=== PATIENT | female | born 1945 | race Caucasian/White ===

== ENCOUNTER → 2017-05-14 | Outpatient (CLI) | payer BC ==
[~2017-05-14] MED LIST: ALPR-411 PO; ATEN50TA8 PO; OMEG10007 PO
[2017-05-14 12:55] LABS: BASO % 0.4 %; BASO ABS # 0.03 K/uL (0-0.2); COMPLETE YES; EOS % 2.1 %; HEMATOCRIT 47.3 % (37-47); IG% 0.3 %; LYMPH % 21.7 %; LYMPH ABS # 1.52 K/uL (1.2-3.4); MEAN CELL VOLUME 88.1 fL (80-100); MEAN PLATELET VOLUME 11.9 fL (7.4-10.4); NEUT % 66.5 %; PLATELET COUNT 166 K/uL (130-400); RED BLOOD COUNT 5.37 M/uL (4.2-5.4)
[2017-05-14 13:12] LABS: ESTIMATED AVERAGE GLUCOSE 154 mg/dl; HA1C FLAG Normal (Normal)
[2017-05-14 13:19] LABS: ALT/SGPT 36 U/L (12-78); BLOOD UREA NITROGEN 17 mg/dl (7-18); BUN/CREATININE RATIO 23.1 (10-20); CALCIUM 9.5 mg/dl (8.5-10.1); CARBON DIOXIDE 32 mmol/L (21-32); CHLORIDE 100 mmol/L (98-107); CREATININE 0.75 mg/dl (0.60-1.20); GLUCOSE 158 mg/dl (70-99); POTASSIUM 3.8 mmol/L (3.5-5.1); SODIUM 137 mmol/L (136-145)
[2017-05-14 13:21] LABS: ALKALINE PHOSPHATASE 68 U/L (45-117); AST/SGOT 30 U/L (15-37); CHOLESTEROL 217 mg/dl (0-200); CHOLESTEROL/HDL RATIO 4.4; HDL CHOLESTEROL 49 mg/dl; LDL CHOLESTEROL CALCULATED 124 mg/dl; TRIGLYCERIDES 221 mg/dl (0-150); VERY LOW DENSITY LIPOPROT CALC 44 mg/dl
== END | disposition home or self-care (01) ==
LOC: C.LABBFT 08:23
PROVIDERS: ATTEND Internal Medicine
DX: E55.9 Vitamin D deficiency, unspecified (principal)

== ENCOUNTER → 2017-05-29 | Outpatient (CLI) | payer BC | END | disposition home or self-care (01) | LOC: C.PAPS 13:59 | PROVIDERS: ATTEND Obstetrics & Gynecology | DX: Z12.4 Encounter for screening for malignant neoplasm of cervix (principal) ==

== ENCOUNTER → 2017-08-15 | Outpatient (CLI) | payer BC ==
[2017-08-15 13:25] LABS: HEMOGLOBIN A1C 6.9 % (4.5-5.6)
== END | disposition home or self-care (01) ==
LOC: C.LABBFT 08:21
PROVIDERS: ATTEND Internal Medicine
DX: E11.9 Type 2 diabetes mellitus without complications (principal)

== ENCOUNTER → 2017-11-13 | Outpatient (CLI) | payer BC ==
[2017-11-13 12:48] LABS: HEMOGLOBIN A1C 6.5 % (4.5-5.6)
== END | disposition home or self-care (01) ==
LOC: C.LABBFT 08:14
PROVIDERS: ATTEND Internal Medicine
DX: R73.09 Other abnormal glucose (principal)

== ENCOUNTER 2023-02-11 06:23 | Observation (INO) ==
--- NOTE | 2023-02-07 13:44 | Anesthesiology Consultation ---
Date of Service February 07, 2023 Assessment & Plan (1) Encounter for pre-operative examination: Chart Review Chart Review: Acceptable Risk for Surgery and Patient NOT seen in Pre Admission Testing - Check BSG AM DOS -COVID screening: Per PAT nursing assessment on 02/04/23. No known COVID-19 positive contacts or current COVID-19 related symptoms. Travel screen negative. At surgeon discretion if preop Covid testing being done. History Surgery Operation Date: 02/11/23 09:10 Proposed Procedures p Left Breast Mastectomy with Left [place] Lymph Node Biopsy - Juanjose Negron MD, FACS Height/Weight Height: 5 ft 7 in Weight: 77.111 kg Allergies Allergy/AdvReac Type Severity Reaction Status Date / Time No Known Drug Allergies Allergy Verified 02/11/23 06:42 Medications Home Medications Medication Instructions Recorded Confirmed Last Taken cholecalciferol (vitamin D3) 50 2,000 units PO DAILY 06/30/19 02/11/23 02/09/23 mcg (2,000 unit) tablet triamcinolone acetonide 0.1 % 1 applic topical TID PRN vulvar 08/03/21 02/11/23 Unknown topical ointment itching #30 grams carvedilol 25 mg tablet 25 mg PO BID #180 tabs 08/28/22 02/11/23 02/11/23 05:30 indapamide 2.5 mg tablet 2.5 mg PO QAM 02/04/23 02/11/23 02/11/23 05:30 metformin 500 mg tablet 500 mg PO QAM 02/04/23 02/11/23 02/09/23 omeprazole 20 mg capsule,delayed 20 mg PO QAM 02/04/23 02/11/23 02/10/23 08:00 release alprazolam 0.5 mg tablet 0.25 - 0.5 mg PO HS PRN Anxiety 02/11/23 02/11/23 02/10/23 17:00 Active Medications Generic Name Dose Route Start Last Admin Trade Name Freq PRN Reason Stop Dose Admin Lactated Ringer's 1,000 mls @ 15 mls/hr 02/11/23 06:00 02/11/23 07:00 Lr IV 02/12/23 05:59 15 mls/hr .Q24H MIYA Administration Past Medical History Medical History Anxiety Breast cancer Recurrent breast cancer 01/01/23- left breast -reason for upcoming left mastectomy Jun 2021- left breast biopsy x 2- ADH and papilloma 1996 breast cancer Diabetes mellitus Erythrocytosis RBC only mildly elevated on 02/07/23 preop labs (5.56) GERD without esophagitis Hyperlipidemia Hypertension Otitis media, chronic, left Past Family History Family History Father , age 75 Renal failure Mother , age 85 Cryptogenic cirrhosis Brother , age 81 Heart disease Esophageal cancer Unknown Diverticulitis Sister Breast cancer Denies family history of Ovarian cancer Prostate cancer Diabetes Myocardial infarction Lung cancer Colorectal cancer Stroke Past Surgical History Surgical History H/O colonoscopy (08/11/12) History of ear surgery right tympanic membrane History of partial mastectomy of left breast with axillary sampling S/P tonsillectomy Social History Smoking Status: Never smoker Do You Dip or Chew Tobacco: No Hx Alcohol Use: No Hx Substance Use: No Physical Exam Vital Signs Last Vital Signs Temp 98.2 F 02/11/23 06:45 Pulse 82 02/11/23 06:45 Resp 18 02/11/23 06:45 BP 174/96 H 02/11/23 06:45 Pulse Ox 95 02/11/23 06:45 O2 Del Method Room Air 02/11/23 06:45 Lab Results Anesthesia Preop Results Results Anesthesia Widget: WBC 7.30 K/ul (4.8-10.8) 02/07/23 Hgb 16.0 g/dl (12.0-16.0) 02/07/23 Hct 46.6 % (37.0-47.0) 02/07/23 Plt 194 K/uL (130-400) 02/07/23 Na 137 mmol/L (136-145) 02/07/23 K 3.5 mmol/L (3.5-5.1) 02/07/23 Cl 99 mmol/L (98-107) 02/07/23 CO2 28 mmol/L (21-32) 02/07/23 BUN 17 mg/dl (6-23) 02/07/23 Creat 0.60 mg/dl (0.6-1.2) 02/07/23 Glucose Level 229 mg/dl (70-99(Fasting)) H 02/07/23 POC Glucose 270 mg/dl (70-99) H 02/11/23 Testing Laboratory Results 02/11/23 06:56 POC Glucose 270 H 08/23/22= HGB A1C: 7.4 Electrocardiogram Date: 02/07/23 Findings: + NSR @ (80bpm ) Nonspecific ST abnormality When compared to EKG from August 11, 2012no significant change was found per cardio
[~2023-02-11 06:23] MED LIST changes: -ALPR-411 PO; -ATEN50TA8 PO; +LR 15ML/HR IV SCH; -OMEG10007 PO; +ceFAZolin 2000MG 2,000 MG/15 ML SYR IV SCH
--- NOTE | 2023-02-11 07:02 | History & Physical Report ---
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 She also had prior biopsies in 2 places of the left breast medial and lateral showing ADH I believe this is a recurrent breast cancer with a history in 1996 Allergies Allergy/AdvReac Type Severity Reaction Status Date / Time No Known Drug Allergies Allergy Verified 02/11/23 06:42 Home Medications Medication Instructions Recorded Confirmed Type cholecalciferol (vitamin D3) 50 2,000 units PO DAILY 06/30/19 02/11/23 History mcg (2,000 unit) tablet triamcinolone acetonide 0.1 % 1 applic topical TID PRN vulvar 08/03/21 02/11/23 Rx topical ointment itching #30 grams carvedilol 25 mg tablet 25 mg PO BID #180 tabs 08/28/22 02/11/23 Rx indapamide 2.5 mg tablet 2.5 mg PO QAM 02/04/23 02/11/23 History metformin 500 mg tablet 500 mg PO QAM 02/04/23 02/11/23 History omeprazole 20 mg capsule,delayed 20 mg PO QAM 02/04/23 02/11/23 History release alprazolam 0.5 mg tablet 0.25 - 0.5 mg PO HS PRN Anxiety 02/11/23 02/11/23 History Past Med/Surg History Medical History Anxiety Breast cancer Recurrent breast cancer 01/01/23- left breast -reason for upcoming left mastectomy Jun 2021- left breast biopsy x 2- ADH and papilloma 1996 breast cancer Diabetes mellitus Erythrocytosis RBC only mildly elevated on 02/07/23 preop labs (5.56) GERD without esophagitis Hyperlipidemia Hypertension Otitis media, chronic, left Surgical History H/O colonoscopy (08/11/12) History of ear surgery right tympanic membrane History of partial mastectomy of left breast with axillary sampling S/P tonsillectomy Family History Father , age 75 Renal failure Mother , age 85 Cryptogenic cirrhosis Brother , age 81 Heart disease Esophageal cancer Unknown Diverticulitis Sister Breast cancer Denies family history of Ovarian cancer Prostate cancer Diabetes Myocardial infarction Lung cancer Colorectal cancer Stroke Social History Smoking Status: Never smoker Second Hand Exposure: No; Do You Dip or Chew Tobacco: No; Tobacco Cessation Education Requested by Patient: No Hx Alcohol Use: No Hx Substance Use: No Preferred Language: Lao Communication Ability: Effective Visual Impairment: Limited Hearing Ability: Hard of Hearing 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 [employer]ation Required: No Beliefs That Will Affect Care: None marital status: Current Living Situation: Spouse current occupational status: retired How many Children do You have: 1 Other Information That Helps Us Care for You: No Feels Safe at Home: Yes Safety Concerns: Feels Safe At This Time Childhood Exposure to Second-Hand Smoke: No Diet: diabetic and regular Diet Comment: Mediterranean diet reviewed caffeine: Yes (very rare if she does ) during the past year weight has: remained stable Dental Care, Regularly: Yes Physical Activity Frequency: 3-4 Times per Week Physical Activity Frequency Comment: Importance of routine aerobic exercise stressed. At minimum 150-200 minute Seatbelt Use: always Sunscreen Use: Yes Assistive Devices: Denture - Lower Review of Systems All systems reviewed & are unremarkable except as noted in HPI & below Physical Exam Constitutional: well developed and well nourished; no acute distress Eyes: + anicteric sclerae Respiratory: normal respiratory effort; no respiratory distress Cardiovascular: Rate/Rhythm: regular rate Gastrointestinal (Abdomen): Percussion/Palpation: abdomen soft Musculoskeletal: Gait: normal gait Skin: no rashes, warm and dry Neurologic: awake Psychiatric: Orientation: alert Results & Data Vital Signs (Past 12 Hours) Vital Signs Temp Pulse Resp BP Pulse Ox O2 Del Method 02/11/23 06:45 36.8 C 82 18 174/96 H 95 Room Air
[2023-02-11] MEDS ORDERED: BUPIVACAINE 0.5 % 5 MG/1 ML MPF 30ML VIAL ONE (07:58)
[2023-02-11] MEDS ORDERED: ISOSULFAN BLUE 10 MG/ML VIAL 5 ML ONE (07:58)
[2023-02-11] MEDS ORDERED: fentaNYL citrate PF 100 MCG/2 ML VIAL ONE ×2 (08:32→09:39)
[2023-02-11] MEDS ORDERED: ONDANSETRON INJ 2 MG/ML 2 ML VIAL ONE (08:32)
[2023-02-11] MEDS ORDERED: ROCURONIUM BROMIDE 10 MG/ML 5 ML VIAL IV ONE (08:32)
[2023-02-11] MEDS ORDERED: PROPOFOL IV EMULSION 10 MG/ML 20 ML VIAL IV ONE (08:32)
[2023-02-11] MEDS ORDERED: MIDAZOLAM HCL 1 MG/ML 2ML VIAL ONE (08:33)
[2023-02-11] MEDS ORDERED: NovoLIN-R INSULIN PER UNIT CHARGE SC STA (08:40)
[2023-02-11] MEDS ORDERED: NovoLIN-R INSULIN PER UNIT CHARGE ONE (08:41)
[2023-02-11] MEDS ORDERED: fentaNYL citrate PF 100 MCG/2 ML VIAL IV PRN (08:41)
[2023-02-11] MEDS ORDERED: ONDANSETRON INJ 2 MG/ML 2 ML VIAL IV PRN ×2 (08:41→11:47)
[2023-02-11] MEDS ORDERED: ePHEDrine sulfate 50 MG/ML AMP IV PRN (08:41)
[2023-02-11] MEDS ORDERED: ATROPINE SULFATE 0.1 MG/ML 10ML SYR IV PRN (08:41)
[2023-02-11] MEDS ORDERED: ePHEDrine sulfate 50 MG/ML SYR ONE (09:06)
[2023-02-11] MEDS ORDERED: ACETAMINOPHEN 1,000 MG/100 ML VIAL IV ONE (10:26)
--- NOTE | 2023-02-11 10:26 | Post Operative Brief Note ---
PG Immediate Post Op with CF Date of Surgery February 11, 2023 Pre & Post Diagnosis Operation Date: 02/11/23 09:10 Pre-Op Diagnosis: Left Breast Invasive Cancer Post-Op Diagnosis: Left Breast Invasive Cancer I identified the patient and participated in the time-out.: Yes Procedure Operation Date: 02/11/23 09:10 Actual Procedures p Left Breast Mastectomy with Left [place] Lymph Node Biopsy(Left) - Juanjose Negron MD, FACS Surgeon Juanjose Negron MD, FACS Experimental Box Tester chad red Estimated Blood Loss 10 Findings Consistent with Post-Op Diagnosis Left sentinel lymph nodes and left breast tissue Specimens Specimen Description: A. Left [place] Lymph Node B. Left Breast; Long Silk Lateral Drains Mendoza-Osuna Drain
--- NOTE | 2023-02-11 10:47 | Operative Report ---
PG Post Operative Report Pre & Post Diagnosis Operation Date: 02/11/23 09:10 Pre-Op Diagnosis: Left Breast Invasive Cancer Post-Op Diagnosis: Left Breast Invasive Cancer I identified the patient and participated in the time-out.: Yes Procedure Operation Date: 02/11/23 09:10 Actual Procedures p Left Breast Mastectomy with Left [place] Lymph Node Biopsy(Left) - Juanjose Negron MD, FACS Surgeon Juanjose Negron MD, FACS Assistant Property Manager chad red Estimated Blood Loss 10 Findings Consistent with Post-Op Diagnosis Specimens Left axillary lymph nodes and left breast tissue Description of Procedure Patient brought in the operating room placed the operating room table in supine position, her left arm was extended on an armboard Her left chest and axilla were prepped and draped in usual fashion Half percent plain Marcaine was used to anesthetize all incisions-incision was made in the left axilla Using the neoprobe and blue dye which had been injected several sentinel lymph nodes were identified and sent for routine pathology Elliptical incision was made around the nipple areolar complex from medial to lateral over the left breast Dissection was carried out in the subcutaneous tissue dissecting the breast tissue away from the subcutaneous tissue creating superior and inferior skin flaps Breast tissue was dissected away from the pectoralis major muscle Vessels were ligated using 2-0 chromic and plain suture Breast tissue was marked with long silk lateral and then placed into the Faxitron to identify the markers-they were all in place within the specimen Site was irrigated 15 round Mendoza-Osuna drain placed into the chest wound secured using 3-0 nylon suture Axillary tissue reapproximated deep using 2-0 plain suture then the skin using 4-0 nylon suture Chest wall skin reapproximated using subcutaneous 3-0 Vicryl and then subcuticular 4-0 Monocryl with half-inch Steri-Strips Dressing applied patient transferred recovery room in stable condition My miller head assistant wet process help with prepping draping removal of breast tissue and lymph nodes and closure of the wounds I attest to the content of the Intraoperative Record and any orders documented therein. Any exceptions are noted below.
--- NOTE | 2023-02-11 10:54 | Hospitalist Consultation ---
Date of Consultation February 11, 2023 Assessment & Plan (1) Status post left mastectomy: -Pain control, perioperative abx, DVT PPX, and IV fluids per the primary team -Patient tolerated her procedure well and is without acute complications -Ordered am CBC, BMP, and mag for 02/12, we will follow -Thank you for allowing us to participate in the care of this patient, please reach out with any questions or concerns -Medicine will continue to follow (2) Diabetes mellitus: -Hold metformin -Received 2 units of SC Regular Human insulin for hyperglycemia at 0840 -Will place pharmacy glycemic management consult for assistance for glucose management -Would start a DMII diet once she can tolerate solids (3) Erythrocytosis: -Is monitored by her PCP, has declined hematology consult in the past -Monitor CBC tomorrow morning (4) GERD without esophagitis: -Continue daily PPI (5) Hypertension: -Stable -Continue BID Carvedilol -Hold Indapamide for now to prevent hypotension/DAVID Plan The patient was discussed with Dr. Raines at the time of the consult Supervising Physician Co-Signing Physician Notes I personally saw and examined the patient. I verified all jones points and agree with Guevara Sweet PA-C with the following exceptions and/or additions: 77 year old female POD#0 left breast mastectomy. No concerns or questions from the patient. O/E Alert & orientatedx3, No respiratory distress A/P No change to plan as above. History of Present Illness Reason for Consultation: Post-op medical management Requesting Physician: Juanjose Negron MD, FACS Attending Physician: Dr. 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 Negron. Per review of the patient's vitals, the patient has remained stable since arrival. Per the operative report, the EBL was listed as 10 cc; anesthesia type and post-operative complications were not listed. At the time of the exam the patient was lying in bed in no acute distress. She states that she feels tired after her procedure but is otherwise without c omplaints. She has some mild tenderness at the surgical site but her pain is currently well-controlled. She states she took some of her am medications this morning but is not sure which ones she took. The patient is hesitant to open her mouth wide at the time of the exam due to being self conscious regarding not having her dentures in at this time. Please refer to Dr. Raines's attestation for any changes to the treatment plan Allergies Allergy/AdvReac Type Severity Reaction Status Date / Time No Known Drug Allergies Allergy Verified 02/11/23 06:42 Home Medications Medication Instructions Recorded Confirmed Type cholecalciferol (vitamin D3) 50 2,000 units PO DAILY 06/30/19 02/11/23 History mcg (2,000 unit) tablet triamcinolone acetonide 0.1 % 1 applic topical TID PRN vulvar 08/03/21 02/11/23 Rx topical ointment itching #30 grams carvedilol 25 mg tablet 25 mg PO BID #180 tabs 08/28/22 02/11/23 Rx indapamide 2.5 mg tablet 2.5 mg PO QAM 02/04/23 02/11/23 History metformin 500 mg tablet 500 mg PO QAM 02/04/23 02/11/23 History omeprazole 20 mg capsule,delayed 20 mg PO QAM 02/04/23 02/11/23 History release alprazolam 0.5 mg tablet 0.25 - 0.5 mg PO HS PRN Anxiety 02/11/23 02/11/23 History cephalexin 500 mg capsule 500 mg PO TID #15 caps 02/12/23 Rx hydrocodone 5 mg-acetaminophen 325 1 tab PO Q4H PRN pain #10 tabs 02/12/23 Rx mg tablet Patient History Medical History Anxiety Breast cancer Recurrent breast cancer 01/01/23- left breast -reason for upcoming left mastectomy Jun 2021- left breast biopsy x 2- ADH and papilloma 1996 breast cancer Diabetes mellitus Erythrocytosis RBC only mildly elevated on 02/07/23 preop labs (5.56) GERD without esophagitis Hyperlipidemia Hypertension Otitis media, chronic, left Surgical History (Updated 02/11/23 @ 11:20 by Guevara Sweet PA-C) H/O colonoscopy (08/11/12) History of ear surgery right tympanic membrane History of partial mastectomy of left breast with axillary sampling S/P tonsillectomy Family History Father , age 75 Renal failure Mother , age 85 Cryptogenic cirrhosis Brother , age 81 Heart disease Esophageal cancer Unknown Diverticulitis Sister Breast cancer Denies family history of Ovarian cancer Prostate cancer Diabetes Myocardial infarction Lung cancer Colorectal cancer Stroke Social History Smoking Status: Never smoker Second Hand Exposure: No; Do You Dip or Chew Tobacco: No; Tobacco Cessation Education Requested by Patient: No Hx Alcohol Use: No Hx Substance Use: No Preferred Language: Urdu Communication Ability: Effective Visual Impairment: Limited Hearing Ability: Hard of Hearing Packaging Clerk Required: No Beliefs That Will Affect Care: None marital status: Current Living Situation: Spouse current occupational status: retired How many Children do You have: 1 Other Information That Helps Us Care for You: No Feels Safe at Home: Yes Safety Concerns: Feels Safe At This Time Childhood Exposure to Second-Hand Smoke: No Diet: diabetic and regular Diet Comment: Mediterranean diet reviewed caffeine: Yes (very rare if she does ) during the past year weight has: remained stable Dental Care, Regularly: Yes Physical Activity Frequency: 3-4 Times per Week Physical Activity Frequency Comment: Importance of routine aerobic exercise stressed. At minimum 150-200 minute Seatbelt Use: always Sunscreen Use: Yes Assistive Devices: Denture - Lower Physical Exam Physical Exam: Physical Exam: General: In no acute distress, stated age, well-nourished, good hygiene HEENT: Normocephalic, atraumatic, no scleral icterus, pupils around round, symmetrical, and reactive to light, moist mucus membranes, trachea midline, no thyromegaly Chest/Pulm: No respiratory distress, symmetrical chest expansion, clear breath sounds throughout Cardiac: RRR, no murmurs noted Abdomen: Negative for ascites and bruising, normoactive bowel sounds, soft, non-tender to palpation throughout Musculoskeletal: Chest is currently wrapped and without signs of drainage/bleeding, otherwise symmetrical and without signs of acute trauma Extremities: Radial, dorsalis pedis, and posterior tibial pulses are intact and symmetrical, no edema noted in the BL LE's Skin: Warm, dry, no rashes , lesions, or scars noted Neuro: Alert and oriented to person, place, month, year, and president, no focal defects, no tremors noted Psych: No acute distress, calm and cooperative during the exam Results & Data Results & Data Vital Signs (Past 12 Hours) Vital Signs Temp Pulse Resp BP Pulse Ox O2 Del Method 02/11/23 06:45 36.8 C 82 18 174/96 H 95 Room Air Laboratory Results Abnormal lab results 02/11/23 02/11/23 Range/Units 06:56 10:46 POC Glucose 270 H 204 H (70-99) mg/dl ECG Additional Comments: Will obtain at the time of the consult PG Care Time/CCT Total # of Minutes Spent Total Time Spent with Patient: Total time spent is greater than 50% in coordination of care (as documented) at patient's floor/unit and/or counseling patient: Coding [place] [address] IN/OBS CONSULT LVL 3,45M Patient Type Established Medical Decision Making Moderate Complexity Diagnoses Status post left mastectomy Z90.12 Diabetes mellitus E11.9 Erythrocytosis D75.1 GERD without esophagitis K21.9 Hypertension I10
[2023-02-11] MEDS ORDERED: PHARMACY GLYCEMIC MGMT CONSULT PRN (11:11)
[2023-02-11] MEDS ORDERED: ALPRAZolam 0.25 MG TABLET PO PRN (11:12)
--- NOTE | 2023-02-11 11:17 | Anesthesiology Progress Note ---
Date of Service February 11, 2023 Anesthesia Post Procedure Vital Signs Vital Signs: Temp Pulse Pulse Resp BP Pulse Ox O2 Del Method 02/11/23 11:15 97.9 F 70 20 157/91 H 95 Room Air 02/11/23 10:55 81 20 145/85 H 94 Room Air 02/11/23 11:05 75 20 154/90 H 95 Room Air 02/11/23 10:45 85 13 122/83 97 Oxymask 02/11/23 10:37 98.1 F 75 20 123/66 97 Oxymask 02/11/23 06:45 98.2 F 82 18 174/96 H 95 Room Air O2 Flow Rate 02/11/23 11:15 02/11/23 10:55 02/11/23 11:05 02/11/23 10:45 2 02/11/23 10:37 6 02/11/23 06:45 Transfer of Care Handoff Completed per policy Notes Mental Status: alert / awake / arousable and participated in evaluation Patient Amnestic to Procedure: Yes Nausea / Vomiting: adequately controlled Pain: adequately controlled Airway Patency, RR, SpO2: stable & adequate BP & HR: stable & adequate Hydration State: stable & adequate Anesthetic Complications: no major complications apparent and Pt Satisfied with anesthetic care
[2023-02-11] MEDS ORDERED: MoRPHine SULFATE 2 MG/ML CARP IV PRN (11:47)
[2023-02-11] MEDS ORDERED: SODIUM CHLORIDE 0.9% 1000ML 1,000 ML IV SCH (11:47)
[2023-02-11] MEDS ORDERED: ACETAMINOPHEN 1,000 MG/100 ML VIAL IV PRN (11:47)
[2023-02-11] MEDS ORDERED: GLUCAGON FOR INJ 1 MG VIAL IM PRN (12:15)
[2023-02-11] MEDS ORDERED: GLUCOSE 40% GEL 15 GM TUBE PO PRN (12:15)
[2023-02-11] MEDS ORDERED: LANTUS PER UNIT CHARGE SC ONE ×2 (12:15→21:00)
[2023-02-11] MEDS ORDERED: GLUCOSE 10 TAB/TUBE PO PRN (12:15)
[2023-02-11] MEDS ORDERED: DEXTROSE 50% 50 ML SYRINGE IV PRN (12:15)
[2023-02-11] MEDS ORDERED: CARBOHYDRATES FOR HYPOGLYCEMIA PO PRN (12:15)
[2023-02-11] MEDS: INSULIN ASPART PER UNIT CHARGE SC SCH ×3 (12:45→20:40)
--- NOTE | 2023-02-11 14:17 | Pharmacy Report ---
Pharmacy Glycemic Short Note 2 - Date of Service February 11, 2023 - Glycemic Short BSG Results (Last 24 hours): 02/11/23 02/11/23 02/11/23 06:56 10:46 12:16 POC Glucose 270 H 204 H 216 H OUTPATIENT ANTIDIABETIC REGIMEN: * metformin 500 mg PO daily HbA1c: 7.4% (08/23/22) ASSESSMENT: * JORGE A is a 77 year old female POD #0 s/p left breast mastectomy * No perioperative steroids * BSGs elevated during perioperative period, 270, 204, and 216 mg/dL * Will give initial basal dose and ~weight/based stress of 2.5 parameters * Diet ordered postoperatively PLAN FOR INPATIENT GLYCEMIC CONTROL: * Hold outpatient oral diabetes medications * Basal insulin * Lantus 10 units SQ x 1, then 0-10 units SC HS x 1 * Reassess in AM * Bolus insulin * NovoLog per scale ACHS or Q6hrs while NPO * Goal Range: Low 110 mg/dL - High 140 mg/dL * Correction Factor: 30 mg/dL/unit * Nutritional / Prandial insulin per carb ratio of 1 unit per 10 grams CHO consumed
[2023-02-11] MEDS: ACETAMINOPHEN 325 MG TAB PO PRN ×2 (15:16→21:56)
--- NOTE | 2023-02-11 15:18 | Mammography Report ---
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 COMPARISON: Comparison is made to exams dated: 01/01/2023 mammogram, 01/01/2023 ultrasound biopsy, 11/23 ultrasound, 12/05/2022 mammogram, 06/28/2021 mammogram, and 06/28/2021 stereotactic biopsy - [facility]. FINDINGS: Specimen radiography was performed of the left breast mastectomy tissue specimen, to ensure visualization of all biopsy marker clips within the specimen. The specimen demonstrates postoperati ve change with expected architectural distortion and surgical clips. Hourglass, T and ribbon-shaped metallic biopsy markers are present within the specimen, distal from the edge of the tissue. Numerou s calcifications and the left 10:00 breast mass are also visualized within the specimen. This was re layed to the operating surgeon via telephone. IMPRESSION: SPECIMEN Left breast mastectomy tissue specimen radiograph, as above. Teena Lopez M.D. ay/:02/11/2023 10:56:17 Head Rigger: OR Technologist, [facility]
[2023-02-11] MEDS ORDERED: Nursing to Pharmacy Communication SCH (17:00)
[2023-02-11] MEDS: ceFAZolin 1000MG 1,000 MG/7.5 ML SYR IV SCH (17:27)
[2023-02-11] MEDS: carvediloL 25 MG TAB PO SCH (20:40)
[2023-02-12] MEDS ORDERED: INSULIN ASPART PER UNIT CHARGE SC SCH
[2023-02-12] MEDS: ceFAZolin 1000MG 1,000 MG/7.5 ML SYR IV SCH ×2 (02:00→10:22)
[2023-02-12 06:28] LABS: Basophils # (auto) 0.04 K/uL (0-0.2); Basophils % (auto) 0.5 %; Eosinophils # (auto) 0.08 K/uL (0-0.50); Hematocrit (blood only) 43.7 % (37.0-47.0); Hemoglobin 15.4 g/dl (12.0-16.0); Immature Granulocytes # (auto) 0.02 K/uL (0.01-0.20); Immature Granulocytes % (auto) 0.2 %; Lymphocytes # (auto) 1.37 K/uL (1.2-3.4); Lymphocytes % (auto) 16.7 %; Mean Corpuscular Hemoglobin 29.3 pg (25.0-34.0); Mean Corpuscular Hgb Conc 35.2 g/dL (32.0-36.0); Mean Corpuscular Volume 83.2 fL (80.0-100.0); Mean Platelet Volume 11.3 fL (9.4-12.4); Monocytes # (auto) 0.93 K/uL (0.11-0.59); Monocytes % (auto) 11.3 %; Neutrophils # (auto) 5.78 K/uL (1.40-6.50); Neutrophils % (auto) 70.3 %; Platelet Count 171 K/uL (130-400); RDW Coefficient of Variation 12.8 % (11.5-14.5); RDW Standard Deviation 38.8 fL (36.4-46.3); Red Blood Count 5.25 M/uL (4.20-5.40); White Blood Count 8.22 K/ul (4.8-10.8)
--- NOTE | 2023-02-12 06:44 | Surgery Progress Note ---
Date of Service February 12, 2023 Assessment & Plan (1) Status post left mastectomy: Plan: Also left sentinel lymph node biopsy Patient doing very well and wants to go home Serosanguineous output from drain expected Dressing intact and dry, no significant hematoma Plan for discharge home later this morning We will likely need a visiting nurse We will see in the office next Saturday or Saturday for wound check and drain removal Pain med and antibiotic prescription sent to pharmacy Admission and Anticipated Discharge Date Admission Date: February 11, 2023 Results & Data Vital Signs (Past 12 Hours) Vital Signs Temp Pulse Pulse Resp BP Pulse Ox O2 Del Method 02/12/23 02:33 36.7 C 75 75 16 92 Room Air 02/11/23 20:02 36.9 C 81 16 148/82 H 94 Room Air 02/11/23 19:17 36.5 C 65 18 134/75 95 Room Air PG Care Time/CCT Total # of Minutes Spent Total Time Spent with Patient: Total time spent is greater than 50% in coordination of care (as documented) at patient's floor/unit and/or counseling patient: Coding Level of Care Code 85088 Post Operative Follow-Up Diagnoses Status post left mastectomy Z90.12
[2023-02-12 06:47] LABS: BUN Creatinine Ratio 21.3 (10-20); Calcium 9.4 mg/dl (8.6-10.3); Creatinine Clr Calc Pharmacy 72.7 ml/min; Est GFR (African American) 99.9 ml/min; Est GFR (Non-African American) 86.2 ml/min; Magnesium 1.7 mg/dl (1.7-2.4); Potassium 3.3 mmol/L (3.5-5.1)
[2023-02-12] MEDS: carvediloL 25 MG TAB PO SCH (08:53)
[2023-02-12] MEDS: INSULIN ASPART PER UNIT CHARGE SC SCH (08:55)
[2023-02-12] MEDS ORDERED: PANTOprazole 40 MG TAB PO SCH (09:00)
[2023-02-12] MEDS ORDERED: HEPARIN SOD 5,000 UNIT/0.5 ML VIAL SQ SCH (09:00)
[2023-02-12] MEDS ORDERED: LANTUS PER UNIT CHARGE SC SCH (09:00)
--- NOTE | 2023-02-14 13:28 | Discharge Summary ---
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 She also had prior biopsies in 2 places of the left breast medial and lateral showing ADH I believe this is a recurrent breast cancer with a history in 1996 Principal Diagnosis Left breast cancer Discharge Exam Patient status post left mastectomy with dressing in place and drain Constitutional no acute distress Eyes + anicteric sclerae Respiratory normal respiratory effort; no respiratory distress Cardiovascular Rate/Rhythm: regular rate Gastrointestinal (Abdomen) Inspection/Auscultation: abdomen not distended Musculoskeletal Head/Neck/Chest: head atraumatic Skin no rashes, warm and dry Neurologic awake Psychiatric Orientation: alert Discharge Data Allergies Allergy/AdvReac Type Severity Reaction Status Date / Time No Known Drug Allergies Allergy Verified 02/11/23 06:42 Consultations 02/11/23 11:47 Consult Hospitalist Routine Procedures Performed Operation Date: 02/11/23 09:10 Actual Procedures p Left Breast Mastectomy with Left [place] Lymph Node Biopsy(Left) - Juanjose Negron MD, FACS Ordered Studies 02/11/23 05:00 US - OR guided needle placemen Routine Hospital Course (1) H/O left mastectomy: Patient was brought in the hospital and taken to the operating room where she underwent left mastectomy with sentinel lymph node biopsy She tolerated the procedure well and was transferred to the regular nursing floor for overnight observation She did very well overnight and was felt stable for discharge on 02/12/2023 to be followed in the surgical office within 1 week Her drain was left in place Total Time Total Time Spent Total Time Spent (In Minutes): 25 minutes Discharge Plan Discharge Items Patient Disposition: Home - Self-Care Reason For Visit: Left Breast Invasive Cancer Discharge Diagnosis: left breast mastectomy left sentinel lymph node biopsy Activity: Per Instructions section Activity Comment: light activity for 4 weeks Lifting: No more than 10 pounds Bathing Comment: keep incisions dry until your follow up appointment Sexual Activity: When tolerated Exercise/Sports: Wait until after follow-up appointment Exercise Comment: wait 4 weeks Driving/Machine Use: no driving until cleared by the surgeon Non-emergency contact: Surgeon Call non-emergency contact if: you have any medication questions, your symptoms worsen, your pain is unusual for you, you have a fever, your temperature is above 101.5, your wound has increased redness, your wound has increased drainage and your wound pain has increased Follow-up/Referrals: Juanjose Negron MD, FACS [Physician] - 02/20/23 11:00 am PCP,NO [Primary Care Provider] - Diet: Regular and Carb Consistent or DM2 Addtl Attending Provider Instructions: SPECIAL CARE INSTRUCTIONS: * Cover incisions and change daily for comfort/drainage. * Empty drain 2-3 times per day and record. * May use ibuprofen for pain as tolerated. * Expect some swelling and bruising. Call your doctor if: * Temperature above 101 degrees * Pain not relieved by pain medicine ordered * There is increased drainage or redness from any incision * You have any unanswered questions or concerns [phone]. FOLLOW UP VISIT: If not already scheduled, please call the office for a follow-up visit. For next Saturday or ound check and drain removal-please call the office for appointment OFFICE PHONE NUMBER: Dr. Negron Office Pending Studies at Discharge: Yes Studies:: surgical pathology Stand-Alone Forms: My [facility] Medications and DC Order Prescriptions: New hydrocodone-acetaminophen 5-325 mg tablet 1 tab PO Q4H PRN (Reason: pain) Qty: 10 0RF Rx Instructions: For severe pain you may take 2 tablets but not more than 6 tablets in a single day Patient had surgery on 02/11/2023 by me She is to follow-up in the office next week cephalexin 500 mg capsule 500 mg PO TID Qty: 15 0RF Continued triamcinolone acetonide 0.1 % ointment 1 applic topical TID PRN (Reason: vulvar itching) Qty: 30 0RF cholecalciferol (vitamin D3) 2,000 unit tablet 2,000 units PO DAILY carvedilol 25 mg tablet 25 mg PO BID Qty: 180 3RF metformin 500 mg tablet 500 mg PO QAM indapamide 2.5 mg tablet 2.5 mg PO QAM omeprazole 20 mg capsule,delayed release(DR/EC) 20 mg PO QAM Rx Instructions: Take 1 capsule by mouth once daily alprazolam 0.5 mg tablet 0.25 - 0.5 mg PO HS PRN (Reason: Anxiety) Discharge Orders: Discharge Order (Routine); Ordered 08/22/23 Ordered By: Juanjose Negron Admission Data Admit Date/Time: 02/11/23 10:40 Attending Provider: Juanjose Negron Admit Provider: Juanjose Negron Primary Care Provider: PCP,NO Other Providers: Arie Thomas ; Karis Gtz ; Gustavo Avila ; Juanjose Bowden ; Michael Sanchez ; Evaristo Avery ; Efrem Arthur ; Katty Bruner ; Yanna Rushing ; Alverto Quintana ; Antonia Asif ; Patrice Reyez ; Alyssa Adames ; Guevara Sweet ; Rocky Willett ; Karis Valle ; Liz Zimmer ; Brendan Cash ; Gustavo Raines ; Fritz Zhu ; Cherrie Scott ; Peng Allen ; Heather Dozier ; Randell Anguiano ; Vince Hobbs ; Ana Ordonez ; Maddy Sharma ; Olegario Singh ; Maureen Benites ; Priyanka Hagen ; Juanjose Sánchez ; Michael Ma Other Interventions: Discharge Summary Assessment (RN) Last Done: 02/12/23 06:57 Coding Level of Care Code 99842 IN/OBS DISCH 30 MIN/LESS Diagnoses H/O left mastectomy Z90.12
== END 2023-02-12 11:04 | disposition home or self-care (01) ==
LOC: ASU 06:23 → INTOOBSV 10:40 → 3N 10:40
DX: D75.1 Secondary polycythemia; C50.912 Malignant neoplasm of unspecified site of left female breast; Z79.84 Long term (current) use of oral hypoglycemic drugs; Z79.899 Other long term (current) drug therapy; E11.9 Type 2 diabetes mellitus without complications; K21.9 Gastro-esophageal reflux disease without esophagitis; I10 Essential (primary) hypertension